=== PATIENT | female | born 1995 | race Caucasian/White ===

== ENCOUNTER 2022-10-18 14:04 | Emergency (ER) | payer BC, SELFPAY ==
--- NOTE | 2022-10-18 14:07 | ED.URI ---
HPI - URI/Sore Throat General Chief Complaint: Upper Respiratory Infection Stated Complaint: Fever;Sore Throat Time Seen by Provider: 10/18/22 14:08 Source: patient, RN notes reviewed and old records reviewed Mode of arrival: ambulatory Limitations: no limitations History of Present Illness HPI Narrative: 27-year-old female presents to the [facility] with complaints fever and sore throat that started yesterday. States states that she took a COVID test when her symptoms started yesterday. Reports a fever of 99. Has taken Tylenol. 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 Treatments prior to arrival: acetaminophen Related Data Home Medications Medication Instructions Recorded Confirmed fluoxetine 20 mg tablet 20 mg PO DAILY 10/18/22 10/18/22 levothyroxine 88 mcg tablet 88 mcg PO DAILY 10/18/22 10/18/22 Allergies Allergy/AdvReac Type Severity Reaction Status Date / Time cefprozil [From Cefzil] Allergy Unknown Verified 10/18/22 14:31 Penicillins Allergy Unknown Verified 10/18/22 14:31 Pertussis Vaccines Allergy Unknown Verified 10/18/22 14:31 Review of Systems Review of Systems: All systems reviewed & are unremarkable except as noted in HPI and below Constitutional: Constitutional: Reports no additional constitutional complaints Eyes: Eyes: Reports no additional eye complaints ENT: Reports as per HPI and Reports sore throat Cardiovascular: Cardiovascular: Reports no additional cardiovascular complaints, Denies chest pain and Denies dyspnea Respiratory: Respiratory: Reports no additional respiratory complaints, Denies chest congestion, Denies cough and Denies dyspnea Gastrointestinal: Gastrointestinal: Reports no additional gastrointestinal complaints, Denies abdominal pain, Denies nausea and Denies vomiting Musculoskeletal: Musculoskeletal: Reports no additional musculoskeletal complaints Integumentary/Breasts: Skin/Breast: Reports system reviewed and no additional complaints, except as docu Neurologic: Reports system reviewed and no additional complaints, except as documented Psychiatric: Psychiatric: Reports no additional psychiatric complaints Allergic/Immunologic: Allergic/Immunologic: Reports no additional allergic/immunologic complaints PMFSH Comments At the time of my signature, I reviewed and agree with the nursing past medical, surgical, social, and family history. There is no relevant family history pertinent to the patient complaint. Exam Const: General: cooperative, healthy appearing, comfortable, no acute distress, well developed, alert and well nourished Nutritional Appearance: well nourished Orientation/consciousness: patient oriented x3 Limitations: no limitations HENMT: Head: normal to inspection Ears: hearing grossly normal bilaterally, external ears normal, TM's normal bilaterally and EAC's normal Face/Nose/Sinus: Normal external nose present, Normal nares present, Normal nasal mucous membranes and turbinates present, Nasal discharge present clear bilateral, normal facial exam, sinuses nontender and face symmetric Face and sinus: normal facial exam Mouth: Yes Normal oral and palatal mucosa present, Yes lip normal and Yes moist mucous membranes Throat: posterior oropharynx normal, uvula midline and postnasal drainage Eyes: General: appearance normal, both eyes and all related structures Alignment and Position: alignment normal Periorbital: periorbital findings normal Pupils: Equal, round and reactive pupils present EOM: EOMs intact bilaterally Neck: Neck: normal visual inspection, full ROM, no lymphadenopathy and no meningeal signs Chest: Chest palpation & inspection: normal inspection of the chest Resp: Effort & Inspection: normal respiratory effort and able to speak in complete sentences Auscultation: clear to auscultation bilaterally, no crackles, no rales, no rhonchi and no wheezes Cardio: Rate: regular rate Rhythm: regular rhythm Back/Spine/Pelvis: Cervical Spine: cervical ROM normal Th
[2022-10-18 14:16] VITALS: BP 98/69; PULSE 102; RESP 16; TEMP 36.6; O2SAT 100
== END 2022-10-18 14:40 | disposition home or self-care (01) ==
PROVIDERS: Emergency Provider Nurse Practitioner
DX: J02.9 Acute pharyngitis, unspecified (principal); J06.9 Acute upper respiratory infection, unspecified; Z20.822 Contact with and (suspected) exposure to COVID-19; E03.9 Hypothyroidism, unspecified; F41.9 Anxiety disorder, unspecified; F32.A Depression, unspecified
CPT/HCPCS: 87081; 87426; 87880; 99213; C9803; G0463

== ENCOUNTER 2023-08-25 12:27 | Emergency (ER) | payer BC, SELFPAY ==
[2023-08-25 12:37] VITALS: BP 114/65; PULSE 115; RESP 16; TEMP 37.7; O2SAT 98
--- NOTE | 2023-08-25 12:37 | ED.URI ---
HPI - URI/Sore Throat General Chief Complaint: Upper Respiratory Infection Stated Complaint: Cold symptoms Time Seen by Provider: 08/25/23 12:37 Source: patient, RN notes reviewed and old records reviewed Mode of arrival: ambulatory Limitations: no limitations History of Present Illness HPI Narrative: 28-year-old female presents to the [facility] with upper respiratory symptoms, sore throat, nasal congestion since yesterday. Took 1 Zyrtec and Zicam Patient reports negative home COVID test yesterday, reports 1 to day at 10 minutes but left positive the 30 minute nayeli, came in to get checked Patient denies any other symptoms Onset (ago): day(s) (1) Related Data Home Medications Medication Instructions Recorded Confirmed fluoxetine 20 mg tablet 20 mg PO DAILY 10/18/22 08/25/23 levothyroxine 88 mcg tablet 88 mcg PO DAILY 10/18/22 08/25/23 bupropion HCl 150 mg 24 hr tablet, 150 mg PO DAILY 08/25/23 08/25/23 extended release Allergies Allergy/AdvReac Type Severity Reaction Status Date / Time cefprozil [From Cefzil] Allergy Unknown Verified 08/25/23 12:48 Penicillins Allergy Unknown Verified 08/25/23 12:48 Pertussis Vaccines Allergy Unknown Verified 08/25/23 12:48 Review of Systems Review of Systems: All systems reviewed & are unremarkable except as noted in HPI and below Constitutional: Constitutional: Reports no additional constitutional complaints Eyes: Eyes: Reports no additional eye complaints ENT: Reports as per HPI Cardiovascular: Cardiovascular: Reports no additional cardiovascular complaints, Denies chest pain and Denies dyspnea Respiratory: Respiratory: Reports no additional respiratory complaints, Denies chest congestion, Denies cough and Denies dyspnea Gastrointestinal: Gastrointestinal: Reports no additional gastrointestinal complaints, Denies abdominal pain, Denies nausea and Denies vomiting Musculoskeletal: Musculoskeletal: Reports no additional musculoskeletal complaints Integumentary/Breasts: Skin/Breast: Reports system reviewed and no additional complaints, except as docu Neurologic: Reports system reviewed and no additional complaints, except as documented Psychiatric: Psychiatric: Reports no additional psychiatric complaints Allergic/Immunologic: Allergic/Immunologic: Reports no additional allergic/immunologic complaints PMFSH Past Medical History Medical History Anxiety and depression Thyroid disease Comments At the time of my signature, I reviewed and agree with the nursing past medical, surgical, social, and family history. There is no relevant family history pertinent to the patient complaint. Exam Const: General: cooperative, healthy appearing, comfortable, no acute distress, well developed, alert and well nourished Nutritional Appearance: well nourished Orientation/consciousness: patient oriented x3 Limitations: no limitations HENMT: Head: normal to inspection Ears: hearing grossly normal bilaterally, external ears normal, TM's normal bilaterally, EAC's normal, mastoids normal and no periauricular adenopathy Face/Nose/Sinus: Normal external nose present, Normal nares present, Normal nasal mucous membranes and turbinates present, normal facial exam and face symmetric Face and sinus: normal facial exam and face symmetric Throat: posterior oropharynx normal, uvula midline and no uvular edema Eyes: General: appearance normal, both eyes and all related structures Alignment and Position: alignment normal Periorbital: periorbital findings normal Pupils: Equal, round and reactive pupils present EOM: EOMs intact bilaterally Neck: Neck: normal visual inspection, full ROM, no lymphadenopathy and no meningeal signs Chest: Chest palpation & inspection: normal inspection of the chest Resp: Effort & Inspection: normal respiratory effort and able to speak in complete sentences Auscultation: clear to auscultation bilaterally, no crackl
[2023-08-25 13:15] LABS: EDSTREPNEGPOS1 Presumptive Negative
[2023-08-25 13:23] LABS: EDINFLUASCREEN Negative; EDINFLUBSCREEN Negative
== END 2023-08-25 13:25 | disposition home or self-care (01) ==
PROVIDERS: Emergency Provider Nurse Practitioner; Referring Provider Emergency Medicine
DX: J06.9 Acute upper respiratory infection, unspecified (principal); Z20.822 Contact with and (suspected) exposure to COVID-19; F41.9 Anxiety disorder, unspecified; F32.A Depression, unspecified; E07.9 Disorder of thyroid, unspecified
CPT/HCPCS: 87081; 87426; 87804; 87880; 99213; G0463

== ENCOUNTER 2023-11-28 16:16 | Outpatient (CLI) | payer BC, SELFPAY ==
--- NOTE | ~2023-11-28 | US_ITS ---
Thyroid ultrasound. Clinical History: Nontoxic goiter Findings: Real-time sonography of the thyroid gland was performed. The right lobe measures 6.3 x 2.1 x 1.6 cm. The left lobe measures 5.8 x 2.3 x 1.6 cm. The isthmus is 6 mm in AP diameter. Thyroid parenchyma is markedly heterogeneous, without definite, discrete nodule. Impression: Prominent thyroid gland with markedly heterogeneous parenchyma. No discrete nodule.. Reviewed, dictated and finalized at location . Impression: Prominent thyroid gland with markedly heterogeneous parenchyma. No discrete nod ule..
== END 2023-11-28 16:17 | disposition home or self-care (01) ==
LOC: MICIMG 16:16
PROVIDERS: PCP Nurse Practitioner Family; Visit Provider Nurse Practitioner Family
DX: E04.9 Nontoxic goiter, unspecified (principal); E06.3 Autoimmune thyroiditis
CPT/HCPCS: 76536

== ENCOUNTER 2024-10-15 15:46 | Emergency (ER) | payer OTHER, BC, SELFPAY ==
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
--- OUTSIDE RECORDS SUMMARY | 2024-10-15 15:48 | XMS_ITS | Clinical Summary ---
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 Gender Identity Not on file Sexual Orientation Not on file Plan of Treatment Health Maintenance Due Date Last Done Comments Hepatitis C Virus (HCV) Screening 1996 TdaP Immunization 1996 Hepatitis B Immunization (1 of 3 - 19+ 3-dose series) 08/15/2015 SARS-COV-2 Immunization ( season) 2023 Influenza Immunization (#1) 2024 12/20/2019 Respiratory Syncytial Virus (RSV) Immunization (Adult) (1 - 1-dose 75+ series) 08/15/2071 Meningococcal Immunization (ACWY) Completed 04/29/2014 Human Papillomavirus (HPV) Immunization Completed 04/27/2017, 10/25/2016, 08/23/2016 Pneumococcal Immunization Combined Aged Out No longer eligible b ased on patient's age to complete this topic Rotavirus Immunization Aged Out No lo nger eligible based on patient's age to complete this topic Insurance [employer] on file
--- OUTSIDE RECORDS SUMMARY | 2024-10-15 15:48 | XMS_ITS | Clinical Summary ---
Author Organization [facility] Address [address] [place] [address] Phone Care Team Providers Care Security Systems Administrator Name Role Phone Unavailable Primary Care Provider Unavailabl e Social History Tobacco Use Types Packs/Day Years Used Date Smoking Tobacco: Never Assessed Comments Unknown Sex and Gender Information Value Date Recorded Sex Assigned at Not on file Legal Sex Female 3:58 PM CDT Gender Identity Not on file Sexual Orientation Not on file Plan of Treatment Health Maintenance Due Date Last Done Comments DTAP/TDAP/TD VACCINES (1 - Tdap) 08/15/2015 HEPATITIS B VACCINES (1 of 3 - 19+ 3-dose series) 07/23 CERVICAL CANCER SCREENING 2017 HPV/Cotest (21-29) 2017 PAP SMEAR 2017 HPV VACCINES (1 - 3-dose SCDM series) 08/15/2023 INFLUENZA VACCINE (#1) [address] [facility] BLUE ACCESS/TRUE BLUE PPO
--- OUTSIDE RECORDS SUMMARY | 2024-10-15 15:48 | XMS_ITS | Clinical Summary ---
Author Organization [facility] Address [address] [place] [id number] Care Team Providers Care Roast Master Name Role Phone Rachel Wetzel MD Primary Care Provider [phone] Allergies Active Allergy Reactions Criticality Noted Date Comments Cefprozil Hives 11/12/2010 Penicillins Hives 11/12/2010 Xvbydyj-Wmfeac-Dopef Pertussis Tachycardia /04/2021 Medications FLUoxetine HCl 60 MG Tab 06/27/2019 Active Active Problems No known active problems Immunizations Immunization Administration Dates Next Due Fluzone 6 Months+ Quad (0.5 mL Prefilled Syringe ) 12/16/2021 HPV GARDASIL 9-VALENT 04/27/2017,08/23/2016 HPV4 (Gardasil) 10/25/2016 Menactra 04/29/2014 Family History Medical History Relation Comments Atrial fibrillation Father No Known Problems Mother Relation Status Comments Father Alive Mother Alive Social History Tobacco Use Types Packs/Day Years Used Date Smoking Tobacco: Never Passive Smoke Exposure: Never Smokeless Tobacco: Never Tobacco Cessation:Counseling Given: Not Answered Alcohol Use Standard Drinks/Week Comments Never 0 (1 standard drink = 0.6 oz pur e alcohol) never PHQ-2 Answer Date Recorded PHQ-2 Score - If the patient scores above 3, please move on to questions 3-9 0 05/21/2020 Comments No Sex and Gender Information Value Date Recorded Sex Assigned at Not on file 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 Gender Identity Not on file Sexual Orientation Not on file Last Filed Vital Signs Vital Sign Reading Time Taken Comments Blood Pressure 101/59 04/11/2022 2:23 PM DOCKMASTER Pulse 74 04/11/2022 2:23 PM DOCKMASTER Temperature 36.7 C (98 F) 04/11/2022 2:23 PM DOCKMASTER Respiratory Rate 16 04/11/2022 2:23 PM DOCKMASTER Oxygen Saturation 100% 04/11/2022 2:23 PM DOCKMASTER Inhaled Oxygen Concentration - - Weight 55.8 kg (123 lb) 04/11/2022 2:23 PM DOCKMASTER Height 170.2 cm (5' 7) 04/11/2022 2:23 PM DOCKMASTER Body Mass Index 19.26 04/11/2022 2:23 PM DOCKMASTER Plan of Treatment Health Maintenance Due Date Last Done Comments Cervical Cancer Screening Pa p Smear (Age 21 to 29) Every 3 Years 1996 Cervical Cancer Screening 1996 Annual Physical 08/15/1999 Hepatitis C 2014 DTaP, Tdap and Td Vaccines ( 1 - Tdap) 08/15/2015 Hepatitis B Vaccines (1 of 3 - 19+ 3-dose series) 08/15/2015 COVID-19 Vaccine ( - 2023-2 5 season) 2023 PHQ-2 (Physician [place]) 02/22/2024 Meningococcal Vaccine Completed 04/29/2014 HPV Vaccines Completed 04/27/2017, 10/25/2016, 08/23/2016 Meningococcal B Vaccine Aged Out No l onger eligible based on patient's age to complete this topic Pneumococcal Vaccine: Pediatrics (0 to 5 Years) and At-Risk Patients (6 to 49 Years) Aged Out No longer eligible b ased on patient's age to complete this topic RSV Immunizations Under 20 Months Aged Out No longer eligible b ased on patient's age to complete this topic Insurance [facility] Care Teams Roast Master Relationship Specialty Start Date End Date Rachel Wetzel MD PCP - General INTERNAL MEDICINE 07/19/19
--- OUTSIDE RECORDS SUMMARY | 2024-10-15 15:48 | XMS_ITS | Clinical Summary ---
Author Organization [facility] Address [address] [address] Phone Care Team Providers Care Top Taper Machine Name Role Phone Yani Jacobo Primary Care Provider [phone] Allergies Active Allergy Reactions Criticality Noted Date Comments Ceftezole Hives Medium 04/04/2019 Penicillins Hives Medium 04/04/2019 Pertussis Vaccine,Fluid Hives Medium 02/18/2022 Medications FLUoxetine (PROzac) 20 mg tablet fluoxetine 20 mg tablet Active levothyroxine (SYNTHROID) 88 mcg tablet Take 88 mcg by mouth daily 2 Active multivitamin capsule Take 1 capsule by mouth daily Active acidophilus-pec tin, citrus 100 million cell-10 mg capsule Take by mouth Activ e cholecalciferol , vitamin D3, 1,000 unit tablet,chewable Take by mouth Active levonorgestreL (MIRENA) IUD 1 each by intrauterine route once Active Active Problems Problem Noted Date Diagnosed Date 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 Patient is doing well on levothyroxine. Will request her recent lab results. [place] (generalized anxiety disorder) 02/18/2022 Assessment & Plan (02/18/2022 1:56 PM CRITICAL CARE NURSE PRACTITIONER): Chronic and controlled. Managed by Psychiatry. Continue Prozac 20 mg daily. Follow-up with me as needed. Mild episode of recurrent major depressive disor etienne 02/18/2022 Assessment & Plan (02/18/2022 1:56 PM CRITICAL CARE NURSE PRACTITIONER): See above. Routine adult health maintenance 02/17/2022 Overview (02/18/2022): Health Maintenance: -PCV20: N/A -Tdap vaccine: 2019 -Influenza vaccine: 2021 -Shingles vaccine: N/A -Colonoscopy: N/A -Last WWE: @ [place] -Last Mammogram: N/A -Last DEXA: N/A -Last eye exam: N/A -Last MHA: N/A Assessment & Plan (02/18/2022 1:56 PM CRITICAL CARE NURSE PRACTITIONER): Health Maintenance: -PCV20: N/A -Tdap vaccine: 2019 -Influenza vaccine: 2021 -Shingles vaccine: N/A -Colonoscopy: N/A -Last WWE: @ [place] -Last Mammogram: N/A -Last DEXA: N/A -Last eye exam: N/A -Last MHA: N/A She is up-to-date on immunizations. Will request her Pap from [place]. Up-to-date on labs. Immunizations Immunization Administration Dates Next Due HPV, Quadrivalent 10/25/2016 HPV9 04/27/2017,08/23/2016 Influenza, Quadrivalent, Spl it, Preservative Free, Intramuscular 12/16/2021,12/11/2020,12/20/2019 Meningococcal MCV4P (Menactra) 04/29/2014 Tdap 10/05/2018 Surgical History Surgery Date Site/Laterality Comments WISDOM TOOTH EXTRACTION Family History Medical History Relation Name Comments NOAH disease Father Heart disease Father Hypertension Father Hypertension Maternal Grandfather Thyroid cancer Maternal Grandfather Obesity Maternal Grandmother NOAH disease Mother Diabetes Mother's Sister Relation Name Status Comments Father Alive Maternal Grandfather Maternal Grandmother Mother Alive Mother's Sister Social History Tobacco Use Types Packs/Day Years Used Date Smoking Tobacco: Never Smokeless Tobacco: Never Tobacco Cessation:Counseling Given: Not Answered AUDIT-C Answer Date Recorded Q1: How often do you have a drink containing alc ohol? Monthly or less 02/18/2022 Q2: How many drinks containi ng alcohol do you have on a typical day when you are drinking? 1 or 2 02/18/2022 Q3: How often do you have si x or more drinks on one occasion? Less than monthly 02/18/2022 PHQ-2 Answer Date Recorded PHQ-2 Total Score (If total score is 3 or more points, staff should administer the PHQ-9) 0 02/18/2022 Personal Safety Answer Date Recorded Getting School Help Needed Not on file 02/21 Comments No Sex and Gender Information Value Date Recorded Sex Assigned at Not on file Legal Sex Female 3:13 PM CRITICAL CARE NURSE PRACTITIONER Gender Identity Not on file Sexual Orientation Not on file Obstetrics History Last Filed Vital Signs Vital Sign Reading Time Taken Comments Blood Pressure 108/78 02/18/2022 1:12 PM CRITICAL CARE NURSE PRACTITIONER Pulse 85 02/18/2022 1:12 PM CRITICAL CARE NURSE PRACTITIONER Temperature 36.9 C (98.5 F) 02/18/2022 1:12 PM CRITICAL CARE NURSE PRACTITIONER Respiratory Rate 18 02/18/2022 1:12 PM CRITICAL CARE NURSE PRACTITIONER Oxygen Saturation 97% 02/18/2022 1:12 PM CRITICAL CARE NURSE PRACTITIONER Inhaled Oxygen Concentration - - Weight 56 kg (123 lb 8 oz) 02/18/2022 1:12 PM CS T Height 170.2 cm (5' 7) 02/18/2022 1:12 PM CRITICAL CARE NURSE PRACTITIONER Body Mass Index 19.34 02/18/2022 1:12 PM CRITICAL CARE NURSE PRACTITIONER Plan of Treatment Health Maintenance Due Date Last Done Comments Cervical Cancer Screening 1996 Hepatitis C Screening 1996 Varicella Vaccines (1 of 2 - 13+ 2-dose series) 2009 Hepatitis B Screening 2014 Depression Screening 02/18/2023 02/18/2022, 02/18/2022 Regular Well Visit/Exam 18-64 02/18/2023 02/18/2022 Covid-19 Vaccine (2023-2 5 season) 2023 03/05/2021, 05/01/2020, 04/10/2020 Influenza Vaccine (#1) 2024 , 12/11/2020, 12/20/2019 DTaP/Tdap/Td Vaccine (2 - Td or Tdap) 10/05/2028 10/05/2018 HPV Vaccines Completed 04/27/2017, 10/25/2016, 08/23/2016 Pneumococcal vaccine <65 Aged Out No longer eligible based on patient's age to complete this topic Insurance [facility] Care Teams Top Taper Machine Relationship Specialty Start Date End Date Yani Jacobo PA [phone] [place] [id number] PCP - General Family Medicine 02/18/22
[2024-10-15 15:54] VITALS: BP 106/66; PULSE 80; RESP 16; TEMP 36.4; O2SAT 100
== END 2024-10-15 16:05 | disposition home or self-care (01) ==
PROVIDERS: Emergency Provider Nurse Practitioner; PCP Nurse Practitioner Family
DX: S10.93XA Contusion of unspecified part of neck, initial encounter (principal); W50.0XXA Accidental hit or strike by another person, initial encounter; Y99.0 Civilian activity done for income or pay; E06.3 Autoimmune thyroiditis; F41.9 Anxiety disorder, unspecified
CPT/HCPCS: 99213; G0463

== ENCOUNTER 2025-01-28 08:40 | Emergency (ER) | payer BC, SELFPAY ==
--- NOTE | 2025-01-28 08:42 | ED_ITS ---
HPI - URI/Sore Throat General Chief Complaint: Upper Respiratory Infection Stated Complaint: Sore Throat Time Seen by Provider: 01/28/25 08:52 Source: patient, RN notes reviewed and old records reviewed Mode of arrival: ambulatory Limitations: no limitations History of Present Illness HPI Narrative: 29-year-old female presents to the [facility] with sore throat, fatigue and headache that started on Tuesday, 3 days. Has been using salt water gargles and cough drops. No other treatment prior to arrival. Denies fevers, chest pain, shortness of breath. Onset (ago): day(s) (3) Related Data Home Medications ?Medication ?Instructions ?Recorded ?Confirmed ?Last Taken ?Type levonorgestrel 17.5 mcg/24 hr (up 1 device intrauterin e ONCE 01/04/24 01/28/25 Unknown History to 5 yrs) 19.5mg intrauterine device (Kyleena) Lactobacillus acidophilus 1 1,000 mmu cells PO DAILY 0 06/12/24 01/28/25 Unknown History billion cell capsule (Probiotic Gold Acidophilus) cholecalciferol (vitamin D3) 25 25 mcg PO DAILY 01/28/25 Unknown History mcg (1,000 unit) tablet bupropion HCl 100 mg tablet 300 mg PO ONCE 01/07/25 Unknown History sertraline 50 mg tablet 50 mg PO DAILY 01/07/2510/15 Unknown History Allergies Allergy/AdvReac Type Severity Reaction Status Date / Time cefprozil (From Cefzil) Allergy Hives Verified 01/28/25 09:01 Penicillins Allergy Hives Verified 01/28/25 09:01 Pertussis Vaccines Allergy tachycardia Verified 01/28/25 09:01 Review of Systems Review of Systems: All systems reviewed & are unremarkable except as noted in HPI and below Constitutional: Constitutional: Reports as per HPI, Reports fatigue and Reports headache(s) ENT: Reports as per HPI and Reports sore throat Cardiovascular: Cardiovascular: Reports no additional cardiovascular complaints, Denies chest pain and Denies dyspnea Respiratory: Respiratory: Reports no additional respiratory complaints, Denies chest congestion, Denies cough and Denies dyspnea Musculoskeletal: Musculoskeletal: Reports no additional musculoskeletal complaints Integumentary/Breasts: Skin/Breast: Reports system reviewed and no additional complaints, except as docu PMFSH Past Medical History Medical History Anxiety Encounter to establish care Enlarged thyroid Hypothyroid Zahida's disease Thyroid disease Surgical History Surgical History [place] teeth extracted Family History Family History Father Heart disease Grandparent Heart disease Cancer Grandparent Cancer Social History Social History Smoking status: Never smoker Alcohol intake: former Substance use: never Substance use type: marijuana Other substance usage details: rarely Comments At the time of my signature, I reviewed and agree with the nursing past medical, surgical, social, and family history. There is no relevant family history pertinent to the patient complaint. Exam Const: General: cooperative, healthy appearing, comfortable, no acute distress, well developed, alert and well nourished Nutritional Appearance: well nourished Orientation/consciousness: patient oriented x3 Limitations: no limitations HENMT: Head: normal to inspection Ears: hearing grossly normal bilaterally, external ears normal, TM's normal bilaterally, EAC's normal, mastoids normal and no periauricular adenopathy Mouth: Yes Normal oral and palatal mucosa present, Yes lip normal, Yes tongue normal and Yes moist mucous membranes Throat: posterior oropharynx normal, uvula midline and no uvular edema Eyes: General: appearance normal, both eyes and all related structures Alignment and Position: alignment normal Neck: Neck: normal visual inspection, full ROM, no lymphadenopathy and no meni ngeal signs Chest: Chest palpation & inspection: normal inspection of the chest Resp: Effort & Inspection: normal respiratory effort and able to speak in complete sentences Auscultation: clear to auscultation bilaterally, no crackles, no rales, no rhonchi and no wheezes Cardio: Rate: regular rate Skin: General skin exam: normal color and no rashes or lesions noted Neuro: General: patient oriented x3, gait normal, moves all extremities and no meningeal signs Cognition (Neuro): normal cognition Speech: normal speech Gait exam (Neuro): Normal gait present Extrem: General: normal to inspection, full ROM, capillary refill normal and normal gait Psych: Appearance: grossly normal and well kempt Mental Status: mental status grossly normal Speech and movement: Normal speech and movement present and Clear speech present Affect: normal affect Attitude: cooperative Course Course Level of Care: Express Care Visit Vital Signs Vital signs: Vital Signs Temperature 97.8 F 01/28/25 09:00 Pulse Rate 77 01/28/25 09:00 Respiratory Rate 16 01/28/25 09:00 Blood Pressure 110/71 01/28/25 09:00 Pulse Oximetry 100 01/28/25 09:00 Oxygen Delivery Room Air 01/28/25 09:00 Temperature 97.8 F 01/28/25 09:00 Pulse Rate 77 01/28/25 09:00 Respiratory Rate 16 01/28/25 09:00 Blood Pressure 110/71 01/28/25 09:00 Pulse Oximetry 100 01/28/25 09:00 Oxygen Delivery Room Air 01/28/25 09:00 reviewed MDM MDM Narrative Medical decision making narrative: Patient sitting in exam room. Patient is nontoxic, vitals stable. Patient presents 3 day history of sore throat, fatigue and headache. Flu, COVID are negative. Strep negative, will culture. No acute findings noted on exam. Patient is appropriate for outpatient treatment of viral URI with close follow- up. Discharge instructions reviewed with patient, as well as provided in writing per nursing staff. The instructions also include specific and strict return/GO TO THE ER as well as f/u information. All questions have been answered, and the patient deny any further questions with discharge and discharge plan. Some parts of this dictation were generated by voice recognition software and may contain typographical and/or grammatical inaccuracies. Differential Diagnosis Differential Diagnosis: Differential diagnostic considerations for upper respiratory infection include upper respiratory infection, croup, otitis media, sinusitis, viral infection, bronchitis, influenza, pharyngitis, strep, uvulitis.? Lab Data Labs: Lab Results 01/28/25 01/28/25 Range/Units 09:05 09:14 POC Influenza A Ag Negative (Negative) POC Influenza B Ag Negative (Negative) POC SARS CoV-2 Ag Negative (Negative) POC Grp A Strep Screen Negative (Negative) Reviewed Discharge Plan Discharge Clinical Impression: Upper respiratory infection Qualifiers: URI type: unspecified viral URI Qualified Code(s): J06.9 - Acute upper respirat ory infection, unspecified Patient Disposition: Home Condition: Stable Instructions: Antibiotic Form, Upper Respiratory Infection (ED) Additional Instructions: Your rapid strep swab was negative today at [facility]. A throat culture will be sent to the laboratory for further testing. If the test is positive, you will receive a phone call within 48 hours and an appropriate antibiotic will be initiated at that time. Your rapid COVID test were negative Your rapid flu test was negative Your symptoms are likely due to a viral illness, which is not treated with antibiotics. Typically viral infections last 7-10 days, can linger for couple of weeks. It is very important to treat your symptoms. Drink plenty of water, Gatorade, Pedialyte, ice pops or Jell-O. -Alternate Tylenol and Motrin per package directions for fever or pain. You can alternate every 4 hours -Antihistamine medication such as Zyrtec/Claritin/Shanita during the day can help improve symptoms. -doing daily nasal irrigations can help relieve pressure your sinuses. Things like a Neti pot -Use Flonase twice a day for 5 days then daily to help reduce the inflammation and dry up your sinuses. -You can also use Mucinex. Be sure to drink plenty of water with this medication at least 8 ounces with every dose and it is important to drink 8 to 10 glasses of water per day. Water is a natural decongestant -Eat and drink things that are easy to swallow, like tea or soup, or popsicles. -Oral rinses such as: Salt water gargles and/or may use topical anesthetic (eg. Chloraseptic spray) or lozenges to relieve dryness or throat pain). -Frequent hand washing or hand mattress spring encaser is one of the best ways to prevent spread of infection. -Using a vaporizer or humidifier at night will also help thin secretions and help with coughing up phlegm. -Follow up with primary care provider in 7-10 days if condition is not improving - For new or worsening symptoms go directly to the nearest ER Patient Language: Kinyarwanda Prescriptions: No Action Kyleena 17.5 mcg/24 hr (5 yrs) 19.5 mg intrauterine device 1 device intrauterine ONCE Patient Comments: Inserted 03/16/21 Rx Instructions: as a single dose cholecalciferol (vitamin D3) 25 mcg (1,000 unit) tablet 25 mcg PO DAILY Probiotic Gold Acidophilus 1 billion cell capsule 1,000 mmu cells PO DAILY levothyroxine 88 mcg tablet 88 mcg PO DAILY Qty: 90 4RF bupropion HCl 100 mg tablet 300 mg PO ONCE sertraline 50 mg tablet 50 mg PO DAILY Follow-up/Referrals: UNKNOWN,DOCTOR [Non-Staff] Stand Alone Forms: Work/School Release IP Time of Disposition: 09:28
[2025-01-28 09:00] VITALS: BP 110/71; PULSE 77; RESP 16; TEMP 36.6; O2SAT 100
[2025-01-28 09:07] LABS: EDSTREPNEGPOS1 Negative (Negative)
[2025-01-28 09:15] LABS: EDCOVIDSCREEN Negative (Negative); EDINFLUASCREEN Negative (Negative); EDINFLUBSCREEN Negative (Negative)
== END 2025-01-28 09:34 | disposition home or self-care (01) ==
PROVIDERS: Emergency Provider Nurse Practitioner
DX: J06.9 Acute upper respiratory infection, unspecified (principal); Z20.822 Contact with and (suspected) exposure to COVID-19; E06.3 Autoimmune thyroiditis; F41.9 Anxiety disorder, unspecified
CPT/HCPCS: 87081; 87426; 87804; 87880; 99213; G0463